=== PATIENT | male | born 1980 | race Caucasian/White ===

== ENCOUNTER 2018-11-11 23:22 | Emergency (ER) | payer OTHER ==
--- NOTE | 2018-11-11 23:26 | PDOC ---
History of Present Illness - General History Source: Patient Exam Limitations: No Limitations - History of Present Illness Initial Comments: 11/11/18 23:34 The patient is a 38 year old male, who presents to the ED complaining of testicular pain for the past 2 days that has worsened today. He describes the testicular pain as localized on the left side, ranging from mild to moderate, with radiation up his abdomen. He notes that the pain is exacerbated when the area is touched. He reports that he has had swelling in the testicles in the past but it usually resolves on its own. But since the pain has increased, he decided to come to the ED. He denies any consultation or treatment for his past symptoms. He reports that he is currently sexually active with his of 12 years. He notes that he has never had an STD and denies any penile discharge. He reports that he had a vasectomy 2 years ago. The patient denies chest pain, shortness of breath, headache and dizziness. Denies fever, chills, nausea, vomiting, diarrhea or constipation. Denies dysuria , frequency, urgency and hematuria. PAST MEDICAL HISTORY: no significant history PAST SURGICAL HISTORY: Vasectomy FAMILY HISTORY: no pertinent history SOCIAL HISTORY: Pt lives with family and is employed. MEDICATIONS: reviewed ALLERGIES: As per nursing notes General: No fevers or chills, no weakness, no weight loss HEENT: No change in vision. No sore throat,. No ear pain CardioVascular: No chest pain or shortness of breath Respiratory:No cough, or wheezing. Gastrointestinal: no nausea, vomiting, diarrhea or constipation, No rectal bleeding Genitourinary: (+) Left testicular pain. No dysuria, hematuria, or frequency Musculoskeletal: No joint or muscle pain or swelling Neurologic: No headache, vertigo, dizziness or loss of consciousness Psychiatric: nor depression Skin: No rashes or easy bruising Endocrine: no increased thirst or abnormal weight change Allergic: no skin or latex allergy All other systems reviewed and normal GENERAL: The patient is awake, alert, and fully oriented, in no acute distress. HEAD: Normal with no signs of trauma. EYES: Pupils equal, round and reactive to light, extraocular movements intact, sclera anicteric, conjunctiva clear. EXTREMITIES: Normal range of motion, no edema. : (+) Circumcised male, normal penis, no lesions, no discharge, no lymphadenopathy, normal testicles, normal reflex, left testicle tenderness on palpation with increased fullness within the scrotum, no palpable hernia. NEUROLOGICAL: Normal speech, normal gait. PSYCH: Normal mood, normal affect. SKIN: Warm, Dry, normal turgor, no rashes or lesions noted. 11/11/18 23:37 <Yaniv Medina - Last Filed: 11/11/18 23:36> - General History Source: Patient Exam Limitations: No Limitations - History of Present Illness Initial Comments: 11/11/18 23:30 A portion of this note was documented by scribe services under my direction. I have reviewed the details of the note, within reason, and agree with the documentation with the following case summary and management plan written by me. Patient treated in the ED. Nursing notes are reviewed and incorporated into the medical decision-making. Vital signs reviewed. Assessment and plan: This is a 38-year-old male with left testicular pain 2 days. Patient has had history of similar intermittent pain in the past. Patient is and has been with his partner 12 years and denies any history of STDs in the past. There is no evidence of torsion on my exam however there is some fullness of the scrotum with tenderness most likely secondary to hydrocele however will obtain a ultrasound to rule out pathology. 11/11/18 23:32 11/12/18 00:37 Ultrasound shows a cyst in the epididymis head as well as some inflammation of the epididymis. There is also a small hydrocele on the right. Otherwise no acute pathology no evidence of torsion Patient will be started on Cipro as he is at low risk for STDs and will be given Motrin for the pain <Lakshmi Alexis I - Last Filed: 11/12/18 00:39> - General Chief Complaint: Pain, Acute Stated Complaint: TESTICULAR PAIN X 3 DAYS INCREASING TODAY Time Seen by Provider: 11/11/18 23:25 Past History <Yaniv Medina - Last Filed: 11/11/18 23:36> <Lakshmi Alexis I - Last Filed: 11/12/18 00:39> - Past Medical History Allergies/Adverse Reactions: Allergies Allergy/AdvReac Type Severity Reaction Status Date / Time No Known Allergies Allergy Verified 11/11/18 23:23 Home Medications: Ambulatory Orders Ciprofloxacin [Cipro -] 500 mg PO BID #20 tablet 11/12/18 *Physical Exam - Vital Signs Last Vital Signs Temp Pulse Resp BP Pulse Ox 97.5 F L 50 L 18 138/93 100 11/11/18 23:24 11/11/18 23:24 11/11/18 23:24 11/11/18 23:24 11/11/18 23:24 <Yaniv Medina - Last Filed: 11/11/18 23:36> Moderate Sedation - Procedure Monitoring Vital Signs: Procedure Monitoring Vital Signs Temperature 97.5 F L 11/11/18 23:24 Pulse Rate 50 L 11/11/18 23:24 Respiratory Rate 18 11/11/18 23:24 Blood Pressure 138/93 11/11/18 23:24 O2 Sat by Pulse Oximetry (%) 100 11/11/18 23:24 <Yaniv Medina - Last Filed: 11/11/18 23:36> *DC/Admit/Observation/Transfer - Attestations Scribe Attestion: 11/11/18 23:34 Documentation prepared by Yaniv Medina, acting as medical assistant float for Lakshmi Alexis MD <Yaniv Medina - Last Filed: 11/11/18 23:36> - Discharge Dispostion Decision to Admit order: No <Lakshmi Alexis I - Last Filed: 11/12/18 00:39> Diagnosis at time of Disposition: Epididymitis, left - Discharge Dispostion Disposition: HOME Condition at time of disposition: Stable - Referrals Referrals: Robert Wei MD [Staff Physician] - - Patient Instructions Printed Discharge Instructions: DI for Epididymitis Additional Instructions: For the pain take Tylenol 3 tablets 3 times a day with food don't take on an empty stomach. In addition to that for the end formation/infection take ciprofloxacin 1 tablet twice a day for 10 days. Follow-up with a urologist if not improved in 2-3 days. Return to the emergency department immediately with ANY new, persistent or worsening symptoms. Continue any medications as previously prescribed by your physician. You should follow up with your primary doctor as soon as possible regarding today's emergency department visit. . Please make sure your doctor reviews the results of your emergency evaluation. Thank you for coming to the Emergency Department today for your care. It was a pleasure to see you today. Please note that your evaluation is INCOMPLETE until you follow-up with your doctor.
[2018-11-11 23:36] VITALS: BP 138/93; PULSE 50; TEMP 97.5; BMI 22.9
[2018-11-12] MEDS ORDERED: CIPROFLOXACIN 500 MG TABLET (RESTRICTED TO ID) PO ONE (00:31)
[2018-11-12] MEDS ORDERED: IBUPROFEN 600 MG TABLET (FP) PO ONE ×2 (00:38→00:39)
[2018-11-12] MEDS ORDERED: CIPROFLOXACIN 250 MG TABLET (RESTRICTED TO ID) PO ONE (00:39)
== END 2018-11-12 00:45 | disposition home or self-care (01) ==
LOC: FER 23:22
DX: N45.1 Epididymitis (principal)
CPT/HCPCS: 76870-TC; 99281-25